=== PATIENT | female | born 1930 | race Hispanic/Latino ===

== ENCOUNTER → 2019-02-12 | Outpatient (CLI) | payer MEDICARE, OTHER ==
--- NOTE | 2019-02-12 15:00 | NUR ---
MBSS COMPLETED. +ASPIRATION WITH MIXED TEXTURES AND NON-TRANSIENT PENETRATION WITH THIN LIQUIDS. RECOMMEND MECHANICAL SOFT/GROUND, THIN LIQUIDS (CHIN TUCK); PILLS CRUSHED WITH APPLESAUCE. PATIENT INFORMATION: Pt IS A N 88 YEAR OLD FEMALE REFERRED FOR AN MBSS SECONDARY TO DYSPHAGIA DIAGNOSIS. DAUGHTER ACCOMPANIED THE Pt TO THE MBSS AND REPORTS THAT SHE WAS RECENTLY PLACED ON PUREED TEXTURE AND THICKENED LIQUIDS SECONDARY TO COUGHING WITH FOODS. Pt CURRENTLY ADMITTED TO A LOCAL [facility] AND HAS NOT BEEN EATING WELL. Pt ADMITTED SECONDARY TO PNEUMONIA AND COPD EXACERBATION. Pt HAS A PAST MEDICAL HISTORY SIGNIFICANT FOR CHF,HTN, FALLS,COPD,HEAD INJURY AND IS 02 DEPENDENT IN THE HOME. PLEASE NOTE Pt IS EDENTULOUS. MBSS INTERPRETATION: Pt PRESENTS WITH MILD-MODERATE OROPHARYNGEAL DYSPHAGIA CAUSED BY DECREASED ORAL MOTOR COORDINATION, DECREASED TONGUE BASE RETRACTION, DELAYED PHARYNGEAL RESPONSE TIME, DECREASED LARYNGEAL ADDUCTION EVIDENCED BY DECREASED COMPENSATION FOR MISSING DENTITION, POOLING IN THE VALLECULAE WITH SPILLOVER INTO PYRIFORM SINUS, RESULTING IN SILENT ASPIRATION WITH MIXED TEXTURES AND NON-TRANSIENT PENETRATION WITH THIN LIQUIDS IN NEUTRAL HEAD POSITION. CHIN TUCK COMPLETED WITH THIN LIQUIDS AND SUCCESSFUL. TRIALS: 1. TSP PUREED: GOOD 2. TSP PUDDING: GOOD 3. TSP MIXED: SILENT ASPIRATION 4. THIN LIQUIDS CUP SIPS: NON-TRANSIENT PENETRATION 5. CUP SIP: NECTAR-THICK LIQUIDS: GOOD 6. THIN LIQUIDS VIA CUP CHIN TUCK: GOOD RECOMMENDATIONS: 1. MECHANICAL SOFT/GROUND, THIN LIQUIDS; PILLS CRUSHED WITH APPLESAUCE. 2. COMPENSATORY STRATEGIES: *SEATED AT 90 *CHIN TUCK *NO MIXED TEXTURES (STRICT) *REMAIN UPRIGHT 30 MINUTES AFTER THE MEAL *NO STRAW *SMALL BITES AND SIP 3. SKILLED SPEECH THERAPY TARGETING OROPHARYNGEAL SWALLOW RECOMMENDED 3-5XWK. 4. FOLLOW-UP MBSS IN 4-6WKS PROJECT ANALYST EDUCATED Pt AND DAUGHTER IN RISKS AND CONSEQUENCES OF ASPIRATION. DAUGHTER REQUIRED MULTIPLE EXPLANATIONS. PROJECT ANALYST EXPLAINED THERE SHOULD BE NO FOOD OR LIQUID ENTERING LUNG OR AIRWAY. Pt CURRENTLY ADMITTED TO LTACH SECONDARY TO PNEUMONIA. STRICT PRECAUTIONS TO BE IMPLEMENTED AT THIS TIME. G-CODES SWALLOWING: [id number] Addendum: 02/13/19 at 0811 by BRYSON MELENDREZ, DANYELLE ST Amended: Links added.
== END | disposition home or self-care (01) ==
LOC: RAH 13:28
PROVIDERS: ATTEND Internal Medicine Critical Care Medicine
DX: R13.12 Dysphagia, oropharyngeal phase (principal); R63.3 Feeding difficulties
CPT/HCPCS: 74230; 92611